=== PATIENT | male | born 1940 | race Asian ===

== ENCOUNTER 2017-10-13 09:02 | Observation (INO) | payer OTHER, BC ==
--- NOTE | 2017-10-13 07:16 | PDHPUP ---
History & Physical Update H&P update statement: This history and physical update is based on an assessment of the patient which was completed after admission or registration (within 24 hours), but prior to the surgery/procedure. H&P update: H&P reviewed & patient examined, no change in patient's condition since H&P completed
[~2017-10-13 09:02] MED LIST: BUPI/epINEPH/KETOROLAC IU ONE; ROPIVACAINE 0.2% 80 MG, EPINEPHrine 0.2 MG, KETOROLAC TROMETHAMINE 30 MG in SYRINGE 0 ML IU ONE; TRANEXAMIC ACID 3,000 MG in NS (SYRINGE) 50 ML IRR ONE; TRANEXAMIC ACID 3,000 MG/50 ML BAG IRR ONE; VANCOMYCIN 1 GM VIAL ONE
[2017-10-13] MEDS ORDERED: ACETAMINOPHEN 325 MG TAB PO ONE (09:33)
[2017-10-13] MEDS ORDERED: DEXAMETHASONE 4 MG/ML VIAL IVP ONE (09:33)
[2017-10-13] MEDS ORDERED: FAMOTIDINE 20 MG TAB PO ONE (09:33)
[2017-10-13] MEDS ORDERED: ceFAZolin 2 GM/SWFI 2 GM/20 ML SYR IVP ONE (09:33)
[2017-10-13] MEDS ORDERED: LR 1,000 ML IV ONE (09:39)
[2017-10-13] MEDS ORDERED: LIDOCAINE 1% 2 ML INJ ID PRN (09:39)
[2017-10-13] MEDS ORDERED: MIDAZOLAM 2 MG/2 ML VIAL ONE (11:08)
[2017-10-13] MEDS ORDERED: MIDAZOLAM 2 MG/2 ML VIAL IVP ONE (11:09)
[2017-10-13] MEDS ORDERED: LR 500 ML IV PRN (11:10)
[2017-10-13] MEDS ORDERED: NALOXONE HCL 0.4 MG/ML INJ IVP PRN (11:10)
[2017-10-13] MEDS ORDERED: ALBUTEROL 3 ML DEYVIAL IH PRN (11:10)
[2017-10-13] MEDS ORDERED: ONDANSETRON 4 MG/2 ML VIAL IVP PRN ×2 (11:10→12:43)
[2017-10-13] MEDS ORDERED: DEXAMETHASONE 4 MG/ML VIAL IVP PRN (11:10)
[2017-10-13] MEDS ORDERED: fentaNYL 100 MCG/2 ML INJ IVP PRN (11:10)
--- NOTE | 2017-10-13 11:10 | PDANEPAE ---
ANE History of Present Illness here for R TKA ANE Past Medical History - Cardiovascular History Hx Hypertension: No Hx Arrhythmias: No Hx Chest Pain: No Hx Coronary Artery / Peripheral Vascular Disease: No Hx CHF / Valvular Disease: No Hx Palpitations: No - Pulmonary History Hx COPD: No Hx Asthma/Reactive Airway Disease: No Hx Recent Upper Respiratory Infection: No Hx Oxygen in Use at Home: No Hx Sleep Apnea: No Sleep Apnea Screening Result - Last Documented: Negative - Neurologic History Hx Cerebrovascular Accident: No Hx Seizures: No Hx Dementia: No - Endocrine History Hx Diabetes: No Hyperthyroid: No Obesity: no - Renal History Hx Renal Disorders: No - Liver History Hx Hepatic Disorders: No - Neurological & Psychiatric Hx Hx Neurological and Psychiatric Disorders: No - Cancer History Hx Cancer: No - Congenital Disorder History Hx Congenital Disorders: No - GI History Hx Gastrointestinal Disorders: No - Other Health History Other Health History: wears glasses. dental implants - Chronic Pain History Chronic Pain: Yes (right knee) - Surgical History Prior Surgeries: right knee scope at [facility] [place] in 2016. dental surgery ANE Review of Systems Review of systems is: negative Review of Systems: - Exercise capacity Exercise capacity: >=4 METS METS (RN): 4 METS ANE Patient History - Allergies Allergies/Adverse Reactions: Penicillins Allergy (Verified 09/23/17 10:58) Hives - Home Medications Home medications: home medication list seen and reviewed Home Medications: NK [No Known Home Meds] 09/20/17 [Last Taken Unknown] - NPO status NPO Status: no food or drink >8 hours NPO Since - Liquids (Date): 10/13/17 NPO Since - Liquids (Time): 07:00 NPO Since - Solids (Date): 10/12/17 NPO Since - Solids (Time): 18:00 - Anes Hx Anes Hx: no prior problems - Smoking Hx Smoking Status: Never smoked - Family Anes Hx Family Hx Anesthesia Complications: unknown ANE Labs/Vital Signs - Vital Signs Vital Signs: reviewed preoperatively; see RN documention for details Blood Pressure: 151/90 Heart Rate: 58 Respiratory Rate: 16 O2 Sat (%): 97 Height: 170.18 cm Weight: 81.647 kg ANE Physical Exam - Airway Neck exam: FROM Mallampati Score: Class 1 - Pulmonary Pulmonary: no respiratory distress - Cardiovascular Cardiovascular: regular rate and rhythym - ASA Status ASA Status: I ANE Anesthesia Plan Anesthesia Plan: spinal
[2017-10-13] MEDS ORDERED: fentaNYL 100 MCG/2 ML INJ ONE (11:16)
[2017-10-13] MEDS ORDERED: PROPOFOL/EMULSION 500 MG/50 ML BOTTLE IV ONE (11:17)
[2017-10-13] MEDS ORDERED: PROPOFOL 200 MG/20 ML VIAL ONE (12:34)
[2017-10-13] MEDS ORDERED: diphenhydrAMINE 25 MG CAP PO PRN (12:43)
[2017-10-13] MEDS ORDERED: PROMETHAZINE HCL 25 MG/ML INJ IVP PRN (12:43)
[2017-10-13] MEDS ORDERED: MAGNESIUM HYDROXIDE 30 ML UDCUP PO PRN (12:43)
[2017-10-13] MEDS ORDERED: TEMAZEPAM 15 MG CAP PO PRN (12:43)
[2017-10-13] MEDS ORDERED: oxyCODONE IR 5 MG TAB PO PRN (12:43)
[2017-10-13] MEDS ORDERED: PROMETHAZINE HCL 25 MG SUPPR PR PRN (12:43)
[2017-10-13] MEDS ORDERED: POLYETHYLENE GLYCOL 3350 17 GM PKT PO PRN (12:43)
[2017-10-13] MEDS ORDERED: DIPHENOXYLATE/ATROPINE LOMOTIL 1 TAB PO PRN (12:43)
[2017-10-13] MEDS ORDERED: CYCLOBENZAPRINE 10 MG TAB PO PRN (12:43)
[2017-10-13] MEDS ORDERED: METOCLOPRAMIDE 10 MG/2 ML VIAL IVP PRN (12:43)
[2017-10-13] MEDS ORDERED: LACTULOSE 20 GM/30 ML UDCUP PO PRN (12:43)
[2017-10-13] MEDS ORDERED: ONDANSETRON DISINTEGRATING 4 MG TAB PO PRN (12:43)
[2017-10-13] MEDS ORDERED: BISACODYL 10 MG SUPP PR PRN (12:43)
--- NOTE | 2017-10-13 12:43 | POSTOPPROG ---
Post Op Note Date of Operation: 10/13/17 Surgeon: Jose Vincent Fast Food Manager: raghu vincent Anesthesiologist: dr gant Anesthesia: Spinal, Other (Specify) (adductor canal block) Pre-op Diagnosis: right knee OA Post-op Diagnosis: same Indication: right knee pain Procedure: R TKA Findings: severe knee OA Inf/Abcess present in the surg proc area at time of surgery?: No EBL: 50-100
[2017-10-13] MEDS ORDERED: LR 1,000 ML IV SCH (13:00)
[2017-10-13] MEDS ORDERED: ceFAZolin 2 GM/DEXTROSE 100 ML IV SCH (14:00)
--- NOTE | 2017-10-13 17:18 | POSTANESTH ---
Post Anesthetic Evaluation Cardiovascular Status: Normal, Stable Respiratory Status: Normal, Stable Level of Consciousness/Mental Status: Can Participate in Eval Pain Control: Adequate, Prn Tx Ordered Nausea/Vomiting Control: Adequate, Prn Tx Ordered Complications Possibly Related to Anesthesia: Other, See Comments (Post op urinary retention secondary to spinal)
[2017-10-13] MEDS: ceFAZolin 2 GM/SWFI 2 GM/20 ML SYR IVP SCH (18:12)
[2017-10-13] MEDS: ACETAMINOPHEN 325 MG TAB PO SCH ×2 (18:12→23:44)
[2017-10-13] MEDS: FAMOTIDINE 20 MG TAB PO SCH (20:33)
[2017-10-13] MEDS: ASPIRIN 81 MG CHEWABLE TAB PO SCH (20:33)
[2017-10-13] MEDS: SENNOSIDES/DOCUSATE SODIUM TAB PO SCH (20:33)
[2017-10-14] MEDS: ceFAZolin 2 GM/SWFI 2 GM/20 ML SYR IVP SCH (02:53)
--- NOTE | 2017-10-14 06:31 | GOP ---
[f rep st] OPERATIVE REPORT DATE OF OPERATION: 10/13/2017 SURGEON: Najma Mistry MD COTTON GROWER: CHELI Cyr. ANESTHESIA: Spinal. PREOPERATIVE DIAGNOSIS: Right knee osteoarthritis. POSTOPERATIVE DIAGNOSIS: Right knee osteoarthritis. PROCEDURE PERFORMED: Right total knee arthroplasty. FINDINGS: ESTIMATED BLOOD LOSS: 30 cc. INDICATIONS: This is a 77-year-old male with severe and progressive pain and deformity of the right knee unresponsive to conservative care. Risks and benefits of the surgical intervention were explained in detail. DESCRIPTION OF PROCEDURE: The patient was brought to the operative room and placed on the table in the supine position. Spinal anesthesia was induced without difficulty. A pneumatic tourniquet was applied about the right proximal thigh, and the leg was prepped and draped in a sterile fashion. The leg moser was applied. After exsanguination by elevation the tourniquet was inflated to 250 mm of mercury. Incision was made anterior medial from the tibial tuberosity to a point 3 cm proximal to the superior pole of the patella. Medial parapatellar arthrotomy was carried out from the superior pole of the patella and posteriorly in line with the fibers of the Type II VMO. The medial collateral ligament was elevated and the infrapatellar fat pad was resected. The patella was everted and the articular surface was excised. A 35 mm patellar button was placed. The distal femoral guide hole was drilled and the 6- degree alignment seun was placed. An 8 mm distal femoral cut was made without difficulty. Attention was turned to the tibia and a standard 9 mm cut based on the lateral tibial condyle was performed. The tibial articular surface was excised without difficulty. Attention was turned back to the femur and a size 5 Triathlon femoral cutting block was positioned. Anterior, posterior, and chamfer cuts were made, followed by the intercondylar box cut. The knee was extended and the remnants of the medial and lateral meniscus were excised. The posterior capsule was injected with ropivacaine, epinephrine and Toradol. A size 5 tibial tray was positioned. Trial reduction was then carried out. There was excellent range of motion, alignment, and stability using the 9 mm polyethylene. All trials were then removed. The joint was thoroughly irrigated and carefully dried. The pressfit components were implanted and all excess cement was thoroughly removed. The permanent 9 mm polyethylene X3 was placed without difficulty. The tourniquet was deflated and all bleeders were coagulated. The wound was thoroughly irrigated and closed using interrupted sutures of 2-0 Vicryl for the joint capsule. The subcu was closed with 3-0 Vicryl and the skin with 4-0 Monocryl. Dermabond and Steri-Strips were applied followed by a compressive dressing. The patient was then moved from the operating room to the recovery room in good condition, having tolerated the procedure well. PATHOLOGY: Severe medial and patellofemoral osteoarthritis. /[id number]/MODL MTDD
[2017-10-14] MEDS: ACETAMINOPHEN 325 MG TAB PO SCH (06:37)
[2017-10-14 08:25] VITALS: BP 131/74; PULSE 70; RESP 16; TEMP 97.9; O2SAT 96
--- NOTE | 2017-10-14 09:00 | SOAPPROG ---
SOAP Progress Note Assessment/Plan: Assessment: Patient is doing well POD 1 s/p R TKA Pain management: pain is well controlled on oral pain meds. VTE ppx: recommend aspirin 81 mg BID for 4 weeks, cont HUBER and SCDs Anemia: level is expected initially postop. Asymptomatic. Continue to monitor D/c planning: d/c to home today pending release from PT postop urinary retention: straight cath'd, but resolved. only one documented urine volume, but several voids documented since last straight cath Plan: 10/14/17 08:58 Subjective: patient is doing well today, denies SOB, chest pain and n/v Objective: Vital Signs Temp Pulse Resp BP Pulse Ox 36.6 C 70 16 131/74 H 96 10/14/17 08:00 10/14/17 08:00 10/14/17 08:00 10/14/17 08:00 10/14/17 08:00 Laboratory Results 10/14/17 05:52 10/14/17 05:52 10/13/17 10/14/17 10/15/17 05:59 05:59 05:59 Intake Total 2089 550 Output Total 2074 150 Balance 15 400 incision dressing is clean and dry, NVI, +pf/df ICD10 Worksheet Patient Problems: Problems Problem Status Onset Primary localized osteoarthritis of right knee Acute
[2017-10-14] MEDS: FAMOTIDINE 20 MG TAB PO SCH (09:20)
[2017-10-14] MEDS: SENNOSIDES/DOCUSATE SODIUM TAB PO SCH (09:20)
[2017-10-14] MEDS: ASPIRIN 81 MG CHEWABLE TAB PO SCH (09:20)
--- NOTE | 2017-10-14 15:38 | GDS ---
[f rep st] DISCHARGE SUMMARY ADMISSION DIAGNOSIS: Right knee osteoarthritis. DISCHARGE DIAGNOSIS: Right knee osteoarthritis. PROCEDURE: Right total knee arthroplasty. VTE PROPHYLAXIS: Recommend aspirin 81 mg twice daily for 4 weeks. BRIEF DESCRIPTION OF HOSPITAL STAY: Patient was admitted for an elective joint arthroplasty. The pa tient tolerated the procedure well and has passed physical therapy. The patient was given appropriat e antibiotic prophylaxis and venous thromboembolism prophylaxis. The patient's pain was well control led on oral pain medication, patient was holding down food, and had urinated. Decision was made to d ischarge the patient. The patient was given post-operative prescriptions pre-operatively. PLAN: Follow up as scheduled, Dr. Mistry's office, November 01 at 9:30. /[id number]/MODL
== END 2017-10-14 10:59 | disposition home or self-care (01) ==
LOC: INTOOBSV 09:02 → F3N 09:02
PROVIDERS: ADMIT Orthopaedic Surgery; ATTEND Orthopaedic Surgery
PROC: 0SRC0J9 Replacement of Right Knee Joint with Synthetic Substitute, Cemented, Open Approach (ICD-10-PCS; principal; 2017-10-13 11:15)
DX: M17.11 Unilateral primary osteoarthritis, right knee (principal)
CPT/HCPCS: 27447; 73560; 88311; 97110; 97161; 97165; C1776; G8978; G8979; G8980; G8987; G8988; G8989; J0171; J0690; J1100; J1885; J2250; J2704; J3010; J3370

== ENCOUNTER → 2018-07-13 | Outpatient (CLI) | payer OTHER, BC | END | disposition home or self-care (01) | LOC: BMCIMAGING 16:05 | PROVIDERS: ATTEND Internal Medicine | DX: J06.9 Acute upper respiratory infection, unspecified (principal); R07.9 Chest pain, unspecified ==